=== PATIENT | female | born 1975 | race Caucasian/White ===

== ENCOUNTER 2022-06-24 06:40 | Day surgery (SDC) | payer OTHER ==
[2022-06-24] VITALS (256 sets, daily range): BP systolic 74–193; BP diastolic 44–131
[~2022-06-24] VITALS: Ht 167.6 cm; Wt 67.4 kg
[2022-06-24 07:22] LABS: BASO% 0.4 % (0-3); EOS% 2.4 % (0-8); HEMATOCRIT 38.2 % (37.0-47.0); HEMOGLOBIN 12.6 g/dl (12.0-16.0); IMMATURE GRANULOCYTES 0.1 % (0.0-5.0); LYMPH% 40.3 % (15-41); MEAN CELL VOLUME 86.6 fL CALC (80.0-100.0); MEAN CORPUSCULAR HGB 28.6 pG CALC (26.0-32.0); MONO% 6.9 % (2-13); NEUT# 5.15 thou/uL (2.00-7.15); NEUT% 49.9 % (42-76); RED BLOOD COUNT 4.41 mill/uL (4.20-5.60); RED CELL DISTRI WIDTH 13.2 % (11.5-15.5)
[2022-06-24 07:50] LABS: ALBUMIN 4.1 g/dL (3.2-5.0); ALKALINE PHOSPHATASE 100 u/l (38-126); ANION GAP 8 (6-22 (CALC)); BILIRUBIN, TOTAL 0.3 mg/dL (0.02-1.3); BUN 11 mg/dL (7-17); BUN/CREATININE RATIO 16 (12-20 (CALC)); CARBON DIOXIDE 30 mmol/l (22-30); CHLORIDE 107 mmol/l (95-108); CREATININE 0.7 mg/dL (0.5-1.0); GFR FOR AFR.AMER. > 60 ML/MIN (>=60 (CALC)); GFR OTHER RACES > 60 ML/MIN (>=60 (CALC)); POTASSIUM 4.1 mmol/l (3.5-5.1); SGOT/AST 26 u/l (14-36); SODIUM 140 mmol/l (137-146)
[2022-06-24] MEDS ORDERED: NALTREXONE50 MG PO (12:43)
[2022-06-24] MEDS ORDERED: KLONOPIN2 MG PO (12:44)
[2022-06-24] MEDS ORDERED: CLONIDINE0.1 MG PO (12:44)
[2022-06-25 04:14] VITALS: BP 105/63
[2022-06-25 05:20] LABS: BASO% 0.1 % (0-3); HEMATOCRIT 33.7 % (37.0-47.0); HEMOGLOBIN 11.4 g/dl (12.0-16.0); IMMATURE GRANULOCYTES 0.2 % (0.0-5.0); LYMPH% 9.5 % (15-41); MEAN CELL VOLUME 84.5 fL CALC (80.0-100.0); MEAN CORPUSCULAR HGB 28.6 pG CALC (26.0-32.0); MEAN CORPUSCULAR HGB CONC 33.8 g/dL CAL (32.0-36.0); MONO% 1.2 % (2-13); NEUT# 12.21 thou/uL (2.00-7.15); RED BLOOD COUNT 3.99 mill/uL (4.20-5.60); RED CELL DISTRI WIDTH 13.3 % (11.5-15.5)
[2022-06-25 05:45] LABS: ALBUMIN 3.5 g/dL (3.2-5.0); ALKALINE PHOSPHATASE 83 u/l (38-126); BUN 10 mg/dL (7-17); BUN/CREATININE RATIO 18 (12-20 (CALC)); CHLORIDE 102 mmol/l (95-108); CREATININE 0.6 mg/dL (0.5-1.0); GFR FOR AFR.AMER. > 60 ML/MIN (>=60 (CALC)); GFR OTHER RACES > 60 ML/MIN (>=60 (CALC)); MAGNESIUM 1.9 mg/dL (1.6-2.3); POTASSIUM 3.8 mmol/l (3.5-5.1); SGOT/AST 31 u/l (14-36); TOTAL PROTEIN 6.4 g/dL (6.3-8.2)
[2022-06-25 05:49] LABS: ANION GAP 11 (6-22 (CALC)); BILIRUBIN, TOTAL 0.5 mg/dL (0.02-1.3); CARBON DIOXIDE 21 mmol/l (22-30); SODIUM 130 mmol/l (137-146)
[2022-06-25 07:27] VITALS: BP 111/67
[2022-06-25 08:37] VITALS: BP 111/67
[2022-06-26] MEDS ORDERED: LEVAQUIN750 M1 PO (12:16)
== END 2022-06-25 14:01 | disposition home or self-care (01) | DRG 897 ==
LOC: ANR 06:40 → MS2 06:42 → ANR 07:00 → MS2 17:24 → ANR 06-25 14:01
PROVIDERS: ATTEND Anesthesiology
DX: F11.20 Opioid dependence, uncomplicated (principal)
CPT/HCPCS: J2060; J2354; J3475

== ENCOUNTER 2022-06-25 07:49 | Observation (INO) | payer BC ==
[~2022-06-25] VITALS: Ht 167.6 cm; Wt 68.3 kg
[~2022-06-25 07:49] MED LIST: CLONIDINE0.1 MG PO; KLONOPIN2 MG PO; NALTREXONE50 MG PO
[2022-06-25 21:18] VITALS: BP 100/47
[2022-06-25 22:00] LABS: HEMOGLOBIN 10.6 g/dl (12.0-16.0); IMMATURE GRANULOCYTES 0.4 % (0.0-5.0); LYMPH% 6.6 % (15-41); MEAN CELL VOLUME 84.5 fL CALC (80.0-100.0); MEAN CORPUSCULAR HGB 28.9 pG CALC (26.0-32.0); MEAN CORPUSCULAR HGB CONC 34.2 g/dL CAL (32.0-36.0); MONO% 4.6 % (2-13); NEUT# 23.69 thou/uL (2.00-7.15); NEUT% 88.4 % (42-76); RED BLOOD COUNT 3.67 mill/uL (4.20-5.60); RED CELL DISTRI WIDTH 13.4 % (11.5-15.5)
[2022-06-25 22:05] LABS: ALBUMIN 3.7 g/dL (3.2-5.0); ALKALINE PHOSPHATASE 79 u/l (38-126); ANION GAP 10 (6-22 (CALC)); BILIRUBIN, TOTAL 0.6 mg/dL (0.02-1.3); BUN 14 mg/dL (7-17); BUN/CREATININE RATIO 22 (12-20 (CALC)); CARBON DIOXIDE 24 mmol/l (22-30); CHLORIDE 101 mmol/l (95-108); CREATININE 0.7 mg/dL (0.5-1.0); GFR FOR AFR.AMER. > 60 ML/MIN (>=60 (CALC)); GFR OTHER RACES > 60 ML/MIN (>=60 (CALC)); POTASSIUM 3.7 mmol/l (3.5-5.1); SGOT/AST 41 u/l (14-36); SODIUM 131 mmol/l (137-146); TOTAL PROTEIN 6.5 g/dL (6.3-8.2)
[2022-06-25 23:12] VITALS: BP 109/66
[2022-06-26 04:07] VITALS: BP 107/69
[2022-06-26 06:48] VITALS: BP 103/58
[2022-06-26 06:49] VITALS: BP 103/58
[2022-06-26 11:22] VITALS: BP 133/73
[2022-06-26 11:57] LABS: HEMATOCRIT 29.4 % (37.0-47.0); HEMOGLOBIN 9.9 g/dl (12.0-16.0); IMMATURE GRANULOCYTES 0.3 % (0.0-5.0); LYMPH% 7.1 % (15-41); MEAN CORPUSCULAR HGB 28.6 pG CALC (26.0-32.0); MEAN CORPUSCULAR HGB CONC 33.7 g/dL CAL (32.0-36.0); MONO% 4.1 % (2-13); NEUT# 18.97 thou/uL (2.00-7.15); NEUT% 88.5 % (42-76); RED BLOOD COUNT 3.46 mill/uL (4.20-5.60); RED CELL DISTRI WIDTH 13.5 % (11.5-15.5)
[2022-06-26 12:08] LABS: ALBUMIN 3.1 g/dL (3.2-5.0); ALKALINE PHOSPHATASE 68 u/l (38-126); ANION GAP 7 (6-22 (CALC)); BILIRUBIN, TOTAL 0.4 mg/dL (0.02-1.3); BUN 10 mg/dL (7-17); BUN/CREATININE RATIO 18 (12-20 (CALC)); CARBON DIOXIDE 22 mmol/l (22-30); CHLORIDE 111 mmol/l (95-108); CREATININE 0.6 mg/dL (0.5-1.0); GFR FOR AFR.AMER. > 60 ML/MIN (>=60 (CALC)); GFR OTHER RACES > 60 ML/MIN (>=60 (CALC)); POTASSIUM 3.2 mmol/l (3.5-5.1); SGOT/AST 41 u/l (14-36); SODIUM 136 mmol/l (137-146); TOTAL PROTEIN 5.9 g/dL (6.3-8.2)
[2022-06-26] MEDS ORDERED: LEVAQUIN750 M1 PO (12:16)
== END 2022-06-26 13:14 | disposition home or self-care (01) | DRG 204 ==
LOC: MS2 07:49
PROVIDERS: ADMIT Anesthesiology; ATTEND Anesthesiology
DX: R06.82 Tachypnea, not elsewhere classified (principal); E87.3 Alkalosis; F11.20 Opioid dependence, uncomplicated; R09.02 Hypoxemia; R53.83 Other fatigue; D72.828 Other elevated white blood cell count; R91.8 Other nonspecific abnormal finding of lung field
CPT/HCPCS: G0378; G0379; S0164